=== PATIENT | male | born 1945 | race Caucasian/White ===

== ENCOUNTER 2017-01-21 09:22 | Emergency (ER) | payer OTHER, BC ==
--- NOTE | ~2017-01-21 | EKG ---
PATIENT: JOSETTE BURNS UNIT #: [id number] Ventricular Rate: 64 BPM Atrial Rate: 64 BPM P-R Interval: 132 ms QRS Duration: 80 ms Q-T Interval: 440 ms QTC Calculation(Bezet): 453 ms P [place]: 36 degrees Calculated R [place]: -32 degrees Calculated T [place]: -128 degrees Diagnosis Line: Normal sinus rhythm with sinus arrhythmia Diagnosis Line: Left axis deviation Diagnosis Line: ST and T wave abnormality, consider inferior Diagnosis Line: ischemia Diagnosis Line: ST and T wave abnormality, consider anterolateral Diagnosis Line: ischemia Diagnosis Line: Abnormal ECG Diagnosis Line: When compared with ECG of 18-AUG-2016 16:14, Diagnosis Line: T wave inversion now evident in Inferior leads Diagnosis Line: T wave inversion now evident in Anterior leads Diagnosis Line: Confirmed by BARB BALDERRAMA MD ([id number]) on 01/23/2017 Diagnosis Line: 9:44:52 AM INTERPRETING MD: CONCHIS LLOYD
--- NOTE | ~2017-01-21 | CR72 ---
[facility] A Service of [facility] RADIOLOGY TEXT RESULTS PATIENT: JOSETTE BURNS LOCATION: [facility] : 47 UNIT #: [id number] AGE: [address]: Irvin Knight MD SEX: M ORDER DR: [id number] [facility] [address] [place], [place] [address] [id number] E MR#: [id number] Acc #: [id number] NAME: JOSETTE BURNS : 1945 SEX: M STUDY DATE/TIME: 01/21/2017 9:28 UNIT: [facility] ROOM: STUDY DESCRIPTION: CR Chest Single View Portable Attending Physician: Irvin Knight M.D. Ordering Physician: Irvin Knight M.D. Primary Care Physician: Ashia Rai M.D. MEDICAL IMAGING REPORT This report is preliminary unless electronic signature is present EXAM Portable chest 01/21/2017 INDICATION Chest pain for the last 2 days. Former smoker. History of myocardial infarction. FINDINGS AP portable chest is compared with 08/18/2016. Heart size stable. Patient is status post sternotomy and CABG. Lung volumes are low. There is chronic atelectasis or scarring at the left base. There is some mild atelectasis in the right mid lung. No pneumothorax is seen. IMPRESSION CABG change. Chronic scarring or atelectasis at the left base with some mild atelectasis in the right mid lung. Dictated by... Jack Blanca Jr., M.D. THIS IS AN ELECTRONICALLY VERIFIED REPORT Jack Blanca Jr., M.D. at 01/21/2017 5:04 PM JESSY/galileo TD: 01/21/2017 11:19 JOB #: [id number] MEDICAL IMAGING REPORT Page 1 of 1 COPY
[2017-01-21 09:21] LABS: BASOPHIL# 0.1 X10e3 (0-0.3); BASOPHIL% 0.7 % (0-2.5); EOSINOPHIL# 0.2 X10e3 (0-0.7); EOSINOPHIL% 2.3 % (0.0-7.0); HEMATOCRIT 32.2 % (38.0-50.0); LYMPHOCYTE# 2.8 X10e3 (1.0-3.5); LYMPHOCYTE% 34.6 % (17.0-45.0); MEAN CELL VOLUME 90.8 FL (83-96); MEAN CORPUSCULAR HGB CONC 34.1 g/dL (30-36); MONOCYTE# 0.9 X10e3 (0-1.0); MONOCYTE% 10.7 % (3.0-12.0); NEUTROPHIL# 4.2 X10e3 (1.5-7.1); NEUTROPHIL% 51.7 % (40-75); PLATELET COUNT 221 X10e3 (140-420); RED BLOOD COUNT 3.55 X10e (3.90-5.60); WHITE BLOOD COUNT 8.2 X10e3 (4.0-10.5)
[2017-01-21 09:22] LABS: DIFF IND NO
[~2017-01-21 09:22] MED LIST: AMARYL2 MG PO; AMOXICILLIN500 M1 PO; ATENOLOL25 MG PO; GLUCOPHAGE500 M1 PO; GLYBURIDE-METFO1 TA3 PO; KEFLEX PO; NITROGLYCERIN0.4 MG SL; OMEPRAZOLE40 MG PO; PAROXETINE HCL20 M1 PO; PIOGLITAZONE45 MG PO; PRAVASTATIN SOD40 MG PO; PRILOSEC40 MG PO; TENORMIN25 MG PO; VICODIN PO
[2017-01-21 09:25] LABS: POC - CKMB 1.2 ng/mL (0.0-7.9); POC - TROPONIN <0.05 ng/mL (<=0.05)
[2017-01-21 09:33] LABS: INR 1.1; PARTIAL THROMBOPLASTIN TIME 29.1 SECONDS (23.5-31.3); PROTHROMBIN TIME (PATIENT) 11.4 SECONDS (9.6-11.5)
[2017-01-21 09:49] LABS: ALBUMIN SERUM 2.6 g/dL (3.5-5.0); BILIRUBIN, DIRECT 0.2 mg/dL (0.0-0.2); BILIRUBIN,INDIRECT 0.5 mg/dL (0.0-0.9); BILIRUBIN,TOTAL 0.7 mg/dL (0.2-2.0); CALCIUM SERUM 8.5 mg/dL (8.4-10.2); CREATININE SERUM 1.4 mg/dL (0.6-1.4); GLOM FILT RATE Estimated 50.6 mL/min (>60); POTASSIUM 4.4 mmol/L (3.5-5.1); PROTEIN TOTAL SERUM 6.9 g/dL (6.0-8.3)
[2017-01-21 11:19] LABS: POC - CKMB <1.0 ng/mL (0.0-7.9); POC - TROPONIN <0.05 ng/mL (<=0.05)
== END 2017-01-21 13:58 ==
LOC: CED 09:22
PROVIDERS: Emergency Medicine
DX: R07.89 Other chest pain (principal); E86.0 Dehydration; R13.10 Dysphagia, unspecified; I25.10 Atherosclerotic heart disease of native coronary artery without angina pectoris; I10 Essential (primary) hypertension; E11.9 Type 2 diabetes mellitus without complications
CPT/HCPCS: 36415; 71010; 80048; 80076; 82553; 84484; 85025; 85610; 85730; 93005; 99284